=== PATIENT | male | born 1995 | race Two or more races ===

== ENCOUNTER 2023-10-13 01:23 | Emergency (ER) | payer OTHER ==
[~2023-10-13] VITALS: Ht 175.3 cm; Wt 99.8 kg
[~2023-10-13 01:23] MED LIST: PEPCID AC20 MG PO; PROTONIX40 MG PO
[2023-10-13] MEDS ORDERED: RINGERS SOLUTION,LACTATED 1,000 ML IV STA (03:52)
[2023-10-13] MEDS ORDERED: HYOSCYAMINE SULFATE 0.125 MG TAB.SUBL SL STA (03:52)
[2023-10-13] MEDS ORDERED: FAMOtidine 10 MG/ML (4ML VIAL) IV PUSH STA (03:53)
[2023-10-13] MEDS ORDERED: METOCLOPRAMIDE HCL 5 MG/ML VIAL IM STA (03:54)
[2023-10-13] MEDS ORDERED: METOCLOPRAMIDE HCL 5 MG/ML VIAL ONE (04:01)
[2023-10-13] MEDS ORDERED: FAMOTIDINE/PF 20 MG/2 ML VIAL ONE (04:01)
[2023-10-13] MEDS ORDERED: HYOSCYAMINE SULFATE 0.125 MG TAB.SUBL ONE (04:01)
[2023-10-13 04:29] LABS: HEMATOCRIT 45.5 % (39.0-48.0); HEMOGLOBIN 14.8 g/dL (13-16.00); MEAN CORPUSCULAR HEMOGLOBIN 26.7 pg (27.00-32.0); MEAN CORPUSCULAR HGB CONC 32.6 g/dl (32.0-36.0); PLATELET COUNT 385 K/uL (150-450); RED BLOOD COUNT 5.55 M/uL (4.00-6.00); RED CELL DISTRIBUTION WIDTH 13.7 % (11.5-14.5)
[2023-10-13 04:53] LABS: ALBUMIN 5.1 gm/dL (3.4-5.0); BILIRUBIN TOTAL 1.54 mg/dL (0.3-1.2); CALCIUM 9.7 mg/dL (8.5-10.1); CREATININE SERUM 1.26 mg/dL (0.70-1.30); GFR 68.14; GLOBULINA 3.7 G/DL (2.4-3.5); POTASSIUM 3.66 mEq/L (3.5-5.1); TOTAL PROTEIN 8.8 gm/dL (6.4-8.2)
== END 2023-10-13 06:03 | disposition home or self-care (01) ==
LOC: ER 01:24
DX: K21.9 Gastro-esophageal reflux disease without esophagitis (principal); K29.70 Gastritis, unspecified, without bleeding; R10.9 Unspecified abdominal pain

== ENCOUNTER 2023-10-14 22:30 | Emergency (ER) | payer OTHER ==
[~2023-10-14] VITALS: Ht 175.3 cm; Wt 54.4 kg
[2023-10-15] MEDS ORDERED: PROMETHAZINE HCL 50 MG/ML AMPUL IM STA (00:50)
[2023-10-15] MEDS ORDERED: FAMOTIDINE/PF 20 MG/2 ML VIAL IV PUSH STA (00:50)
[2023-10-15] MEDS ORDERED: PROMETHAZINE HCL 50 MG/ML AMPUL IM ONE (00:57)
[2023-10-15] MEDS ORDERED: FAMOTIDINE/PF 20 MG/2 ML VIAL ONE (00:58)
[2023-10-15] MEDS ORDERED: 0.9 % SODIUM CHLORIDE 1,000 ML IV ONE (01:00)
[2023-10-15 02:42] LABS: URINE APPEARANCE Cloudy; URINE BILIRRUBIN Small (NEGATIVE); URINE BLOOD Negative; URINE COLOR Dark Yellow; URINE GLUCOSE Negative (NEGATIVE); URINE LEUKOCYTE Trace; URINE NITRATE Negative; URINE PROTEIN 30 (NEGATIVE)
[2023-10-15 02:45] LABS: URINE BACTERIA 21.4 uL (0.0-1933); URINE CAST 4.12 uL (0.0-1.40); URINE EPITHELIAL CELLS 15.3 uL (0.0-38.8); URINE RBC 12.2 uL (0.0-20.8); URINE WBC 61.5 uL (0.0-23.2)
[2023-10-15 02:50] LABS: ALBUMIN 4.8 gm/dL (3.4-5.0); BILIRUBIN TOTAL 1.74 mg/dL (0.3-1.2); CALCIUM 9.6 mg/dL (8.5-10.1); CREATININE SERUM 1.33 mg/dL (0.70-1.30); GFR 64.02; GLOBULINA 2.9 G/DL (2.4-3.5); POTASSIUM 3.38 mEq/L (3.5-5.1); TOTAL PROTEIN 7.7 gm/dL (6.4-8.2)
[2023-10-15 03:07] LABS: URINE KETONE 80 (NEGATIVE)
[2023-10-15 03:21] LABS: HEMATOCRIT 43.6 % (39.0-48.0); HEMOGLOBIN 14.5 g/dL (13-16.00); MEAN CELL VOLUME 82.1 fL (80.0-100.00); MEAN CORPUSCULAR HEMOGLOBIN 27.3 pg (27.00-32.0); MEAN CORPUSCULAR HGB CONC 33.2 g/dl (32.0-36.0); PLATELET COUNT 336 K/uL (150-450); RED CELL DISTRIBUTION WIDTH 13.2 % (11.5-14.5)
[2023-10-15 03:28] LABS: URINE MUCUS HEAVY
[2023-10-15] MEDS ORDERED: PHENERGAN25 MG PO (05:16)
== END 2023-10-15 05:52 ==
LOC: ER 22:31
PROVIDERS: General Practice
DX: R11.10 Vomiting, unspecified (principal); K29.70 Gastritis, unspecified, without bleeding

== ENCOUNTER 2024-01-19 22:21 | Emergency (ER) | payer OTHER ==
[~2024-01-19] VITALS: Ht 177.8 cm; Wt 95.3 kg
[~2024-01-19 22:21] MED LIST changes: +PHENERGAN25 MG PO
[2024-01-20] MEDS ORDERED: FAMOTIDINE/PF 20 MG in 0.9 % SODIUM CHLORIDE 8 ML IV PUSH STA (00:43)
[2024-01-20] MEDS ORDERED: METHYLPREDNISOLONE SOD SUCC 125 MG VIAL IV ONE (00:45)
[2024-01-20] MEDS ORDERED: 0.9 % SODIUM CHLORIDE 1,000 ML IV SCH (00:45)
[2024-01-20] MEDS ORDERED: METOCLOPRAMIDE HCL 10 MG in DEXTROSE 5 % IN WATER 50 ML IV ONE (00:45)
[2024-01-20 01:47] LABS: HEMATOCRIT 44.3 % (39.0-48.0); HEMOGLOBIN 14.7 g/dL (13-16.00); MEAN CELL VOLUME 81.5 fL (80.0-100.00); MEAN CORPUSCULAR HGB CONC 33.1 g/dl (32.0-36.0); PLATELET COUNT 435 K/uL (150-450); RED BLOOD COUNT 5.44 M/uL (4.00-6.00); RED CELL DISTRIBUTION WIDTH 13.2 % (11.5-14.5)
[2024-01-20 01:54] LABS: BILIRUBIN TOTAL 1.1 mg/dL (0.3-1.2); CALCIUM 9.9 mg/dL (8.5-10.1); CREATININE SERUM 1.27 mg/dL (0.70-1.30); GFR 67.53; GLOBULINA 3.5 G/DL (2.4-3.5); POTASSIUM 4.3 mEq/L (3.5-5.1); TOTAL PROTEIN 8.5 gm/dL (6.4-8.2)
[2024-01-20] MEDS ORDERED: PEPCID AC20 MG PO (02:53)
[2024-01-20] MEDS ORDERED: ZOFRAN8 MG PO (02:53)
[2024-01-20] MEDS ORDERED: CARAFATE1 GM PO (02:54)
[2024-01-21] MEDS ORDERED: DICLOFENAC SODI75 MG PO (14:53)
== END 2024-01-20 04:38 | disposition home or self-care (01) ==
LOC: ER 22:23
PROVIDERS: General Practice
DX: R11.2 Nausea with vomiting, unspecified (principal); K29.60 Other gastritis without bleeding

== ENCOUNTER 2024-01-21 10:50 | Emergency (ER) | payer OTHER ==
[~2024-01-21] VITALS: Ht 175.3 cm; Wt 104.3 kg
[~2024-01-21 10:50] MED LIST changes: +CARAFATE1 GM PO; +ZOFRAN8 MG PO
[2024-01-21] MEDS ORDERED: KETOROLAC TROMETHAMINE 30 MG VIAL IV ONE (12:15)
[2024-01-21] MEDS ORDERED: METOCLOPRAMIDE HCL 10 MG in 0.9 % SODIUM CHLORIDE 50 ML IV ONE (12:15)
[2024-01-21] MEDS ORDERED: 0.9 % SODIUM CHLORIDE 1,000 ML IV SCH (12:15)
[2024-01-21] MEDS ORDERED: FAMOtidine 10 MG/ML (4ML VIAL) IV PUSH ONE (12:15)
[2024-01-21 13:04] LABS: HEMATOCRIT 44.4 % (39.0-48.0); HEMOGLOBIN 14.6 g/dL (13-16.00); MEAN CELL VOLUME 81.3 fL (80.0-100.00); MEAN CORPUSCULAR HEMOGLOBIN 26.8 pg (27.00-32.0); PLATELET COUNT 409 K/uL (150-450); RED BLOOD COUNT 5.47 M/uL (4.00-6.00); RED CELL DISTRIBUTION WIDTH 13.3 % (11.5-14.5)
[2024-01-21 13:32] LABS: ALBUMIN 4.8 gm/dL (3.4-5.0); BILIRUBIN TOTAL 1.23 mg/dL (0.3-1.2); CALCIUM 9.8 mg/dL (8.5-10.1); CREATININE SERUM 1.34 mg/dL (0.70-1.30); GFR 63.47; GLOBULINA 3.5 G/DL (2.4-3.5); POTASSIUM 3.48 mEq/L (3.5-5.1); TOTAL PROTEIN 8.3 gm/dL (6.4-8.2)
[2024-01-21] MEDS ORDERED: DICLOFENAC SODI75 MG PO (14:53)
== END 2024-01-21 15:08 | disposition home or self-care (01) ==
LOC: ER 10:50
PROVIDERS: General Practice
DX: K63.89 Other specified diseases of intestine (principal); R11.2 Nausea with vomiting, unspecified; K29.70 Gastritis, unspecified, without bleeding; R10.9 Unspecified abdominal pain

== ENCOUNTER 2024-01-23 02:02 | Inpatient (IN) | payer OTHER ==
[~2024-01-23] VITALS: Ht 175.3 cm; Wt 104.3 kg
[~2024-01-23 02:02] MED LIST changes: +DICLOFENAC SODI75 MG PO
[2024-01-23] MEDS ORDERED: OMEPRAZOLE MAGN20 MG PO (02:23)
[2024-01-23] MEDS ORDERED: FAMOTIDINE/PF 20 MG/2 ML VIAL IV PUSH STA (03:29)
[2024-01-23] MEDS ORDERED: PROMETHAZINE HCL 50 MG/ML AMPUL IM STA (03:29)
[2024-01-23] MEDS ORDERED: 0.9 % SODIUM CHLORIDE 1,000 ML IV ONE (03:30)
[2024-01-23 03:59] LABS: HEMATOCRIT 43.6 % (39.0-48.0); HEMOGLOBIN 14.9 g/dL (13-16.00); MEAN CELL VOLUME 80.4 fL (80.0-100.00); MEAN CORPUSCULAR HEMOGLOBIN 27.4 pg (27.00-32.0); MEAN CORPUSCULAR HGB CONC 34.1 g/dl (32.0-36.0); PLATELET COUNT 346 K/uL (150-450); RED BLOOD COUNT 5.42 M/uL (4.00-6.00); RED CELL DISTRIBUTION WIDTH 13.5 % (11.5-14.5)
[2024-01-23 04:25] LABS: ALBUMIN 4.7 gm/dL (3.4-5.0); BILIRUBIN TOTAL 1.5 mg/dL (0.3-1.2); BILIRUBIN,CONJUGATED 0.38 mg/dL (0.0-0.2); BILIRUBIN,UNCONJUGATED 1.12 mg/dL (0.0-0.6); CALCIUM 9.5 mg/dL (8.5-10.1); GLOBULINA 3.3 G/DL (2.4-3.5); POTASSIUM 3.6 mEq/L (3.5-5.1)
[2024-01-23 04:27] LABS: URINE APPEARANCE Clear; URINE BILIRRUBIN Small (NEGATIVE); URINE BLOOD Negative; URINE COLOR Dark Yellow; URINE GLUCOSE Negative (NEGATIVE); URINE LEUKOCYTE Negative; URINE NITRATE Negative; URINE PROTEIN Trace (NEGATIVE)
[2024-01-23 04:31] LABS: URINE BACTERIA 6.1 uL (0.0-1933); URINE RBC 2.3 uL (0.0-20.8); URINE WBC 3.7 uL (0.0-23.2)
[2024-01-23 04:38] LABS: URINE CAST 0.29 uL (0.0-1.40); URINE KETONE >=160 (NEGATIVE)
[2024-01-23 04:54] LABS: CREATININE SERUM 1.08 mg/dL (0.70-1.30); GFR 81.41
[2024-01-23] MEDS ORDERED: DEXTROSE 5 % AND 0.9 % NACL 1,000 ML IV SCH (11:15)
[2024-01-23] MEDS ORDERED: PANTOPRAZOLE SODIUM 80 MG in 0.9 % SODIUM CHLORIDE 100 ML IV SCH (11:15)
[2024-01-23] MEDS ORDERED: ONDANSETRON HCL 2 MG/ML VIAL IV SCH (12:00)
[2024-01-23] MEDS ORDERED: METOCLOPRAMIDE HCL 10 MG in DEXTROSE 5 % IN WATER 50 ML IV SCH (13:00)
[2024-01-23 18:11] VITALS: BP 120/74; O2SAT 96
[2024-01-23] MEDS ORDERED: DIPHENHYDRAMINE HCL 50 MG/ML VIAL 1ML IM SCH (21:00)
[2024-01-24 00:44] VITALS: BP 103/66; O2SAT 96
[2024-01-24 07:15] LABS: ALBUMIN 3.6 gm/dL (3.4-5.0); BILIRUBIN TOTAL 1.63 mg/dL (0.3-1.2); BILIRUBIN,CONJUGATED 0.36 mg/dL (0.0-0.2); BILIRUBIN,UNCONJUGATED 1.27 mg/dL (0.0-0.6); CALCIUM 8.5 mg/dL (8.5-10.1); CHOL HDL RATIO 3.1 (0-5.0); CREATININE SERUM 1.09 mg/dL (0.70-1.30); GFR 80.55; GLOBULINA 2.5 G/DL (2.4-3.5); POTASSIUM 3.9 mEq/L (3.5-5.1); TOTAL PROTEIN 6.1 gm/dL (6.4-8.2)
[2024-01-24 09:03] VITALS: BP 123/78; O2SAT 100
[2024-01-24 16:05] VITALS: BP 122/81; O2SAT 100
== END 2024-01-24 05:00 | disposition left against medical advice (07) | DRG 392 ==
LOC: ER 02:02 → SEC-K 12:34
PROVIDERS: General Practice; ADMIT Internal Medicine; ATTEND Internal Medicine
PROC: BW40ZZZ Ultrasonography of Abdomen (ICD-10-PCS; principal; 2024-01-23)
DX: R11.2 Nausea with vomiting, unspecified (principal); Z53.29 Procedure and treatment not carried out because of patient's decision for other reasons; E86.0 Dehydration; K63.89 Other specified diseases of intestine; K29.70 Gastritis, unspecified, without bleeding